=== PATIENT | male | born 1970 | race Caucasian/White ===

== ENCOUNTER 2016-12-19 07:23 | Day surgery (SDC) | payer OTHER ==
[~2016-12-19 07:23] MED LIST: ACETAMINOPHEN 1000MG/100 ML PREMIX IV ONE
[2016-12-19] MEDS ORDERED: BUPIVACAINE 0.25% W/EPI MPF 30ML VIAL IVP ONE (13:11)
[2016-12-19] MEDS ORDERED: OXYCODONE HCL/APAP 5MG/325MG TABLET PO ONE (13:11)
[2016-12-19] MEDS ORDERED: HYDROMORPHONE HCL 2 MG/ML VIAL IV ONE (13:11)
[2016-12-19] MEDS ORDERED: SEVOFLURANE 250 ML INH ONE (13:16)
[2016-12-19] MEDS ORDERED: MIDAZOLAM HCL 2MG/2ML VIAL IV ONE (13:16)
[2016-12-19] MEDS ORDERED: PROPOFOL 10 MG/ML VIAL IV ONE (13:16)
[2016-12-19] MEDS ORDERED: LIDOCAINE 2% MDV (20MG/ML) 20ML VIAL IV ONE (13:16)
[2016-12-19] MEDS ORDERED: KETOROLAC 30 MG/ML VIAL IVP ONE (13:16)
--- NOTE | 2016-12-22 17:31 | Operative Note ---
DATE OF SURGERY: 12/19/2016 Surgeon: Meliton Hillman DO PREOPERATIVE DIAGNOSIS: Torn medial meniscus, right knee. POSTOPERATIVE DIAGNOSES: 1. Torn medial meniscus, right knee (bucket handle). 2. 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 OPERATION: Arthroscopic partial medial meniscectomy (bucket handle), right knee. DESCRIPTION OF PROCEDURE: This 46-year-old male was taken to the operating room and placed in the supine position on the operating room table. General anesthetic was administered and the right lower extremity was elevated, exsanguinated, and the tourniquet inflated to 300 mmHg. Arthroscopic knee rangel was applied. Right knee prepped with Hibiclens and draped in the usual sterile fashion. An inferolateral portal was established for the 4 mm arthroscope, and initial evaluation of the joint demonstrated normal appearance of the suprapatellar pouch. The patella demonstrated grade 2 chondromalacia and through an inferomedial portal we probed this but it was not grossly unstable and not further disturbed. The trochlea appeared to be essentially normal. The medial compartment was entered and a marked disruption of the medial meniscus was present. This was a bucket-handle type tear which had torn in the middle and a flap was flipped up anteriorly in front of the medial femoral condyle. The posterior part of it was flipped behind the medial femoral condyle. We then were able to grasp the meniscus to bring the posterior piece, which was adjacent to the PCL, into the medial compartment, and then we used the basket forceps to resect the posterior attachment and it was removed. There was marked tearing of the posterior horn of the remaining rim of the meniscus with a large flap tear being present there was well, and this was also resected to a stable rim. We then addressed the anterior horn, which was torn and flipped up anteriorly, and this was cut with a knife and then the remainder was cut with a basket forceps and then further smoothed and trimmed with a rotating shaver. After resection, the remaining rim of the meniscus was stable but jorge little of the rim was present being approximately 2 mm of rim of the meniscus circumferentially remaining intact. The patient demonstrated grade 2 chondromalacia of the medial femoral condyle, which was not unstable either, and this was not further disturbed. The intracondylar notch was examined and found to be normal. The lateral compartment was entered. Probing of the lateral meniscus did not reveal any pathology, and the articular cartilage of the lateral femoral condyle was not abnormal. The joint was copiously irrigated and suctioned. The instruments were removed. The portals infiltrated with 0.25% Marcaine with epinephrine. Sterile dressings applied. Tourniquet and knee rangel released and the patient taken to the recovery room in satisfactory condition. GROSS PATHOLOGY: This patient demonstrated significant tearing of the medial meniscus. This patient initially had a bucket-handle tear which ripped in half and the posterior flap flipped up behind the medial femoral condyle and the anterior part flipped up anterior to the medial femoral condyle towards the intracondylar notch. Both of these fragments were resected. There was also a large flap tear posteriorly which was also resected. Grade 2 chondromalacia of the medial femoral condyle and patella was present but not grossly unstable and not further disturbed. CC: DO CARLINE Manzanares
== END 2016-12-19 11:45 | disposition home or self-care (01) ==
LOC: SUR 07:23
PROVIDERS: ATTEND Orthopaedic Surgery
DX: M23.231 Derangement of other medial meniscus due to old tear or injury, right knee (principal); M22.41 Chondromalacia patellae, right knee
CPT/HCPCS: 29881; 01400; J1885; J1170

== ENCOUNTER 2017-07-14 18:08 | Emergency (ER) | payer OTHER ==
[2017-07-14 18:29] LABS: BASO % 0.1 % (0-6); EOS % 3.7 % (0-6); GRAN % 62.4 % (47-80); HEMATOCRIT 47.1 % (42.0-52.0); HEMOGLOBIN 16.3 gm/dl (14.0-18.0); LYMPH % 21.4 % (16-45); MEAN CELL VOLUME 89.7 fl (81-97); MEAN CORPUSCULAR HGB CONC 34.6 g/dl (32-36); MEAN PLATELET VOLUME 10.4 fl (7.4-10.4); MONO % 12.4 % (0-9); PLATELET COUNT 253 K/uL (130-400); RED BLOOD COUNT 5.25 M/uL (4.40-5.70); RED CELL DISTRIBUTION WIDTH 13.2 % (11.5-14.5); WHITE BLOOD COUNT W/O DIFF 10.2 K/uL (4.2-12.2)
[2017-07-14] MEDS ORDERED: ASPIRIN 81 MG CHEWABLE TABLET PO ONE (18:49)
--- NOTE | 2017-07-14 18:50 | Emergency Department Record ---
History of Present Illness - General Chief Complaint: Chest Pain Stated Complaint: CHEST PRESSURE Time Seen by Provider: 07/14/17 18:44 Source: Patient Mode of Arrival: Ambulatory Limitations: No limitations - History of Present Illness Initial Comments: 47 yo male presents to ED with a CC of chest discomfort intermittently for the past 4 days, worsened by activity. Patient describes his pain as "pressure" in the left chest, also reports some "neck discomfort" and fatigue symptoms. Patient reports recent URI symptoms as well, denies fevers or productive cough. Patient denies history of DVT, lower extremity swelling or pain, or recent surgery. Patient denies health problems at his baseline, but does report that he "used to be on Lisinopril" for blood pressure. Patient denies family history of CAD. MD Complaint: Chest pain Onset/Timin -: Days(s) Onset: Awoke with symptoms Pain Location: Left chest, Right chest Pain Radiation: LUE Severity: Moderate Severity scale (1-10): 4 Quality: Dull, Heaviness Consistency: Constant Improves With: Nothing Worsens With: Nothing Context: Recent illness Anginal Symptoms: Diaphoresis, Nausea Treatments Prior to Arrival: Aspirin - Related Data Home Medications Medication Instructions Recorded Confirmed Last Taken No Home Med [NO HOME MEDS] 07/14/17 07/14/17 Unknown Allergies Allergy/AdvReac Type Severity Reaction Status Date / Time No Known Drug Allergies Allergy Verified 12/18/16 10:01 Travel Screening - Travel/Exposure Within Last 30 Days Have you traveled within the last 30 days?: Yes Location Detail:: [place], [place] - Travel Symptoms Symptom Screening: None Review of Systems Constitutional: Denies: Chills, Fever, Malaise, Night sweats Eyes: Denies: Eye discharge, Eye pain ENT: Denies: Congestion, Ear pain, Epistaxis Respiratory: Denies: Cough, Dyspnea Cardiovascular: Reports: Chest pain. Denies: Dyspnea on exertion Endocrine: Reports: Fatigue. Denies: Heat or cold intolerance Gastrointestinal: Denies: Abdominal pain, Nausea, Vomiting Genitourinary: Denies: Incontinence, Retention Musculoskeletal: Reports: Neck pain. Denies: Arthralgia, Back pain, Gout, Joint swelling Skin: Denies: Bruising, Change in color Neurological: Denies: Abnormal gait, Confusion, Headache Psychiatric: Denies: Anxiety Hematological/Lymphatic: Denies: Anemia, Blood Clots Past Medical History - SOCIAL HISTORY Smoking Status: Former smoker Alcohol Use: Heavy Drug Use: Heavy Drug Use Detail:: Marijuana - RESPIRATORY Hx Respiratory Disorders: Yes Hx Asthma: Yes (mild very rare that he used inhaler) - CARDIOVASCULAR Hx Cardio Disorders: Yes Hx Hypertension: Yes (in past) Hx Palpitations: Yes (PVC's occass has had checked out) - NEURO Hx Neuro Disorders: No - GI Hx GI Disorders: No - Hx Genitourinary Disorders: No - ENDOCRINE Hx Endocrine Disorders: No - MUSCULOSKELETAL Hx Musculoskeletal Disorders: Yes Comment:: right knee pain - PSYCH Hx Psych Problems: No - HEMATOLOGY/ONCOLOGY Hx Hematology/Oncology Disorders: No Family Medical History Any Significant Family History?: Yes Hx Dementia: Grandparents Hx Diabetes: Father, Mother, Grandparents Hx HTN: Father Hx Resp Disorders: Mother Physical Exam - General General Appearance: Alert, Oriented x3, Cooperative, Anxious, Other ( Hypertensive on examination) Limitations: No limitations - Head Head exam: Atraumatic, Normocephalic, Normal inspection Head exam detail: negative: Abrasion, Contusion, Lee's sign, General tenderness, Hematoma, Laceration - Eye Eye exam: Normal appearance. negative: Conjunctival injection, Periorbital swelling, Periorbital tenderness, Scleral icterus - ENT Ear exam: negative: Auricular hematoma, Auricular trauma Nasal Exam: negative: Active bleeding, Discharge, Dried blood Mouth exam: negative: Drooling, Laceration, Tongue elevation - Neck Neck exam: Normal inspection. negative: Meningismus, Tenderness - Respiratory Respiratory exam: Normal lung sounds bilaterally. negative: Respiratory distress, Rhonchi, Stridor, Wheezes - Cardiovascular Cardiovascular Exam: Regular rate, Normal rhythm, Normal heart sounds - GI/Abdominal GI/Abdominal exam: Soft. negative: Rebound, Rigid, Tenderness - Rectal Rectal exam: Deferred - exam: Deferred - Extremities Extremities exam: Normal inspection. negative: Calf tenderness, Pedal edema, Tenderness - Back Back exam: Denies: CVA tenderness (R), CVA tenderness (L) - Neurological Neurological exam: Alert, Normal gait, Oriented X3 - Psychiatric Psychiatric exam: Anxious - Skin Skin exam: Normal color. negative: Abrasion Type of lesion: negative: abrasion Course Vital Signs 07/14/17 18:14 Temperature 98.7 F Pulse Rate 76 Respiratory 20 Rate Blood Pressure 178/113 Pulse Ox 97 - Reevaluation(s) Reevaluation #1: 07/14/17 18:44 EKG: NSR 72 Normal axis, normal intervals ST elevation c/w early repolarization, no ST depression noted on examination Reevaluation #2: 07/14/17 18:53 Patient seen and examined, reports his pressure symptoms at 3/10 currently. ASA and Nitro ordered for discomfort symptoms, will repeat EKG in 15-20 minutes as well. Reevaluation #3: 07/14/17 19:28 Repeat EKG: NSR 70 Normal axis, normal intervals No acute changes from initial EKG Reevaluation #4: 07/14/17 19:37 Labs reviewed and are grossly unremarkable for an acute process. CXR: No acute process Patient was updated on all results, pressure symptoms have not changed with Nitro x 2. Patient reports negative treadmill stress test approximately 1 year ago. I discussed admission for further cardiac evaluation given his history of symptoms, patient declined stating that he would like to go home tonight. After further discussion, patient is willing stay in ED for a 3-hour repeat troponin. Reevaluation #5: 07/14/17 21:49 Repeat Troponin appears normal. Patient reports that he is resting comfortably and is anxious to go home. Will refer the patient for outpatient cardiology consultation in 1-3 days as directed. Patient's HEART Score is 2 on examination , and he appears stable for outpatient management. Medical Decision Making - Lab Data Result diagrams: 07/14/17 18:18 07/14/17 18:18 Lab Results 07/14/17 Range/Units 18:18 WBC 10.2 (4.2-12.2) K/uL RBC 5.25 (4.40-5.70) M/uL Hgb 16.3 (14.0-18.0) gm/dl Hct 47.1 (42.0-52.0) % MCV 89.7 (81-97) fl MCH 31.0 (27-33) pg MCHC 34.6 (32-36) g/dl RDW 13.2 (11.5-14.5) % Plt Count 253 (130-400) K/uL MPV 10.4 (7.4-10.4) fl Gran % 62.4 (47-80) % Lymphocytes % 21.4 (16-45) % Monocytes % 12.4 H (0-9) % Eosinophils % 3.7 (0-6) % Basophils % 0.1 (0-6) % Disposition Disposition: Discharge Clinical Impression: Chest pain Qualifiers: Chest pain type: unspecified Qualified Code(s): R07.9 - Chest pain, unspecified Disposition: Home, Self-Care Condition: (2) Stable Instructions: Chest Pain (ED) Additional Instructions: Return to ED if your symptoms worsen or if you have any concerns. Follow-up with Dr. Hull for outpatient stress testing in 1-3 days as directed. Referrals: MELCHOR HULL M.D. [MEDICAL DOCTOR] - [facility] [Provider Group] Forms: Patient Portal Access Time of Disposition: 21:51 Quality - Quality Measures Quality Measures: N/A - Blood Pressure Screening Does Patient Have Any of the Following: Active Dx of HTN Blood Pressure Classification: Hypertensive Reading Systolic Measurement: 178 Diastolic Measurement: 113 Screening for High Blood Pressure: Patient Exclusion, Hx of HTN [[id number]]
[2017-07-14] MEDS: NITROGLYCERIN 0.4MG SL TABLET #25 BTL SL ONE ×2 (18:57→19:02)
[2017-07-14 19:29] LABS: ALB/GLOB RATIO 1.5 (1.1-1.8); ALBUMIN 4.6 g/dL (4.0-5.0); ALKALINE PHOSPHATASE 81 U/L (40-129); ALT/SGPT 20 U/L (<41); AST/SGOT 20 U/L (10.0-50.0); BLOOD UREA NITROGEN 17 mg/dL (6-20); CREATININE 0.8 mg/dL (0.7-1.2); EST GLOMERULAR FILTRATION RATE > 60 mL/min; GLUCOSE,RANDOM 101 mg/dL (74-109); TOTAL PROTEIN 7.7 g/dL (6.6-8.7)
[2017-07-14 19:31] LABS: CKMB 4.5 ng/mL (<6.73)
--- NOTE | 2017-07-16 08:58 | RADIOLOGY REPORT ---
DATE: 07/14/2017 at 1940. EXAM: CHEST, TWO VIEWS. HISTORY: Chest pain for one day. TECHNIQUE: Upright PA and lateral views of the chest. COMPARISON: None. FINDINGS: The cardiomediastinal silhouette is normal in size and configuration. The thoracic aorta is mildly tortuous. No confluent airspace opacity is seen, nor is there costophrenic angle blunting or pneumothorax. On the lateral view, there is a small nodular density projecting at the level of the anterior mid to upper lungs measuring 3.0 mm. This is likely a vessel on end or a calcified granuloma. Minor degenerative endplate changes are scattered within the spine. IMPRESSION: NO EVIDENCE OF ACUTE CARDIOPULMONARY DISEASE. JOB NUMBER: [id number] MTDD
== END 2017-07-14 21:57 | disposition home or self-care (01) ==
LOC: ER 18:08
DX: R07.89 Other chest pain (principal); R42 Dizziness and giddiness; M54.2 Cervicalgia; R11.0 Nausea; R05 Cough; R61 Generalized hyperhidrosis; R53.83 Other fatigue; Z87.891 Personal history of nicotine dependence
CPT/HCPCS: 71020; 80053; 82553; 84484; 85025; 93005; 93010; 99284